=== PATIENT | male | born 1975 ===

== ENCOUNTER 2018-06-02 06:08 | Inpatient (IN) | payer OTHER ==
--- NOTE | 2018-06-02 06:50 | ED PDOC ---
HPI: Abdomen Time Seen by Provider: 06/02/18 06:34 Chief Complaint (Nursing): Abdominal Pain Chief Complaint (Provider): Abdominal pain History Per: Patient History/Exam Limitations: no limitations Onset/Duration Of Symptoms: Hrs Current Symptoms Are (Timing): Still Present Location Of Pain/Discomfort: RUQ Associated Symptoms: Nausea. denies: Vomiting Additional Complaint(s): 43yo male, with history of diabetes, hypertension, comes to ER with right upper quadrant pain which started at 4AM. Patient states this is the 3rd episode of such pain and he reports the episodes usually last about 5 minutes and resolves on its own. Patient states the pain is persistent today and is associated with nausea; he denies any vomiting. Patient states he has not had a bowel movement in 24 hours which is not normal for him. He otherwise denies any fever, chest pain or shortness of breath. PMD: Zakia Zuleta Past Medical History Reviewed: Historical Data, Nursing Documentation, Vital Signs Vital Signs: Last Vital Signs Temp 98 F 06/02/18 06:22 Pulse 89 06/02/18 06:22 Resp 16 06/02/18 06:22 BP 164/9 H 06/02/18 06:22 Pulse Ox 100 06/02/18 06:22 - Medical History PMH: Diabetes, HTN - Surgical History Surgical History: No Surg Hx - Family History Family History: States: No Known Family Hx - Home Medications Home Medications: Ambulatory Orders Medication Instructions Recorded No Known Home Med 06/02/18 - Allergies Allergies/Adverse Reactions: Allergies Allergy/AdvReac Type Severity Reaction Status Date / Time No Known Allergies Allergy Verified 06/02/18 06:25 Review of Systems ROS Statement: Except As Marked, All Systems Reviewed And Found Negative Constitutional: Negative for: Fever, Chills Cardiovascular: Negative for: Chest Pain Respiratory: Negative for: Shortness of Breath Gastrointestinal: Positive for: Nausea, Abdominal Pain, Other (no bowel movement in past 24 hours). Negative for: Vomiting Physical Exam - Reviewed Nursing Documentation Reviewed: Yes Vital Signs Reviewed: Yes - Physical Exam Appears: Positive for: Non-toxic, No Acute Distress Head Exam: Positive for: ATRAUMATIC, NORMAL INSPECTION, NORMOCEPHALIC Skin: Positive for: Normal Color, Warm Eye Exam: Positive for: Normal appearance, EOMI, PERRL Neck: Positive for: Normal, Supple Cardiovascular/Chest: Positive for: Regular Rate, Rhythm Respiratory: Positive for: Normal Breath Sounds Gastrointestinal/Abdominal: Positive for: Soft, Tenderness (right upper quadrant). Negative for: Mass, Guarding, Rebound Back: Positive for: Normal Inspection. Negative for: Vertebral Tenderness Extremity: Positive for: Normal ROM. Negative for: Pedal Edema Neurologic/Psych: Positive for: Alert, Oriented. Negative for: Motor/Sensory Deficits - Laboratory Results Result Diagrams: 06/02/18 07:07 06/02/18 07:07 - ECG O2 Sat by Pulse Oximetry: 100 (RA) Pulse Ox Interpretation: Normal Medical Decision Making Medical Decision Making: Assessment: 43yo male with right upper quadrant pain. Gallstones vs. cholecystitis vs. gas vs. constipation Plan: -- Labs -- US Abdomen -- XR Obstructive series -- Toradol 30mg IV -- Urinalysis 0700 Patient to be signed out to Dr. Winn pending labs, imaging studies and reass essment. Scribe Attestation: Documented by Naida Solorzano, acting as a scribe for Celestino Caruso MD. Provider Scribe Attestation: All medical record entries made by the Scribe were at my direction and personally dictated by me. I have reviewed the chart and agree that the record accurately reflects my personal performance of the history, physical exam, medical decision making, and the department course for this patient. I have also personally directed, reviewed, and agree with the discharge instructions and disposition. Disposition - Clinical Impression Clinical Impression: Cholecystitis - Patient ED Disposition Is Patient to be Admitted: Transfer of Care - Disposition Disposition: Transfer of Care Disposition Time: 07:00 Condition: FAIR
[2018-06-02 07:18] LABS: BASO % 0.3 % (0.0-2.0); EOS # 0.1 K/uL (0.0-0.7); EOS % 1.2 % (0.0-4.0); HEMOGLOBIN 14.9 g/dL (12.0-18.0); LYMPH # 1.4 K/uL (1.0-4.3); LYMPH % 15.6 % (20.0-40.0); MEAN CELL VOLUME 89.6 fl (80.0-94.0); MEAN CORPUSCULAR HGB CONC 34.6 g/dL (33.0-37.0); MEAN PLATELET VOLUME 8.7 fl (7.2-11.7); MONO # 0.6 K/uL (0.0-0.8); NEUT # 6.7 K/uL (1.8-7.0); NEUT % 75.9 % (50.0-75.0); NRBC % 0.2 % (0.0-0.0); RBC 4.81 Mil/uL (4.40-5.90); RED CELL DISTRIBUTION WIDTH 13.4 % (11.5-14.5); WHITE BLOOD COUNT 8.8 K/uL (4.8-10.8)
--- NOTE | 2018-06-02 07:25 | ED PDOC ---
- Laboratory Results Result Diagrams: 06/02/18 07:07 06/02/18 07:07 - ECG O2 Sat by Pulse Oximetry: 100 (RA) Pulse Ox Interpretation: Normal Medical Decision Making Medical Decision Making: Time: 699 Patient endorsed to provider by Dr. Caruso, pending imagining. Time: 852 TECHNIQUE: Sonographic evaluation of the right upper quadrant of the abdomen. FINDINGS: LIVER: Measures normal size and contour. The liver measures 16.4 cm in greatest dimension. Diffusely increased attenuation consistent with fatty infiltration. No mass. No biliary ductal dilatation. GALLBLADDER: Cholelithiasis. No mural thickening. Sludge. Adenomyomatosis is noted. The wall is thickened up to 4 mm.. There is no pericholecystic fluid. There is a s onographic Godinez sign demonstrated. This raises some suspicion of cholecystitis.. COMMON BILE DUCT: Measures 3 mm. No stones. No dilatation. PANCREAS: Unremarkable as visualized. No mass. No ductal dilatation. RIGHT KIDNEY: Measures 11.8 cm in length. Normal echogenicity. No calculus, mass, or h ydronephrosis. AORTA: No aneurysmal dilatation. IVC: Unremarkable. OTHER FINDINGS: None . IMPRESSION: Cholelithiasis. Thickened wall. Positive sonographic Godinez sign. Findings concerning for acute cholecystitis. Incidental adenomyomatosis. Fatty infiltration of the liver. Limited visualization of pancreas. Time: 933 PROCEDURE: Radiographs of the chest and abdomen (obstructive series) HISTORY: no BM in 24 hours COMPARISON: No prior. TECHNIQUE: AP radiograph of the chest, with upright and supine radiographs of the abdomen. FINDINGS: CHEST: Lungs: Clear. Cardiovascular: Normal size heart. No pulmonary vascular congestion. No aortic atherosclerotic calcification present Pleura: No pleural fluid. No pneumothorax. Other findings: None. ABDOMEN AND PELVIS: Bowel: Mild retained feces. No evidence of bowel obstruction. No hepatic or splenic enlargement. No masses or abnormal calcifications. Free air: Evaluation for free intra-abdominal air is limited on the basis of this examination. Bones: Unremarkable. Other findings: None. IMPRESSION: Unremarkable radiographs of chest and abdomen. No evidence of mechanical bowel obstruction. Scribe Attestation: Documented by Nestor Burgos, acting as a scribe for Kayode Winn MD. Provider Scribe Attestation: All medical record entries made by the Scribe were at my direction and personally dictated by me. I have reviewed the chart and agree that the record accurately reflects my personal performance of the history, physical exam, medical decision making, and the department course for this patient. I have also personally directed, reviewed, and agree with the discharge instructions and disposition. Disposition - Clinical Impression Clinical Impression: Cholecystitis - POA Present On Arrival: None - Disposition Disposition: Admitted as In-Patient Disposition Time: 11:32 Condition: FAIR Forms: [employer] (Romanian)
[2018-06-02 07:29] LABS: ALB/GLOB RATIO 1.2 (1.0-2.1); ALBUMIN 4.7 g/dL (3.5-5.0); ALT/SGPT 103 U/L (21-72); AST/SGOT 157 U/L (17-59); BLOOD UREA NITROGEN 18 mg/dl (9-20); CALCIUM 9.4 mg/dL (8.4-10.2); GFR NON-AFRICAN AMERICAN > 60; LIPASE 109 U/L (23-300)
[2018-06-02 08:22] LABS: URINE BILIRUBIN NEGATIVE (NEGATIVE); URINE BLOOD NEGATIVE (NEGATIVE); URINE CLARITY SLIGHTY-CLOUDY (Clear); URINE COLOR YELLOW (YELLOW); URINE GLUCOSE (UA) >=500 mg/dL (Normal); URINE LEUKOCYTE ESTERASE NEG Leu/uL (Negative); URINE PROTEIN NEGATIVE (NEGATIVE)
--- NOTE | 2018-06-02 08:57 | US ---
Date of service: 06/02/2018 HISTORY: RUQ Pain COMPARISON: None. TECHNIQUE: Sonographic evaluation of the right upper quadrant of the abdomen. FINDINGS: LIVER: Measures normal size and contour. The liver measures 16.4 cm in greatest dimension. Diffusely increased attenuation consistent with fatty infiltration. No mass. No biliary ductal dilatation. GALLBLADDER: Cholelithiasis. No mural thickening. Sludge. Adenomyomatosis is noted. The wall is thickened up to 4 mm.. There is no pericholecystic fluid. There is a sonographic Godinez sign demonstrated. This raises some suspicion of cholecystitis.. COMMON BILE DUCT: Measures 3 mm. No stones. No dilatation. PANCREAS: Unremarkable as visualized. No mass. No ductal dilatation. RIGHT KIDNEY: Measures 11.8 cm in length. Normal echogenicity. No calculus, mass, or hydronephrosis. AORTA: No aneurysmal dilatation. IVC: Unremarkable. OTHER FINDINGS: None . IMPRESSION: Cholelithiasis. Thickened wall. Positive sonographic Godinez sign. Findings concerning for acute cholecystitis. Incidental adenomyomatosis. Fatty infiltration of the liver. Limited visualization of pancreas.
--- NOTE | 2018-06-02 09:39 | RAD ---
Date of service: 06/02/2018 PROCEDURE: Radiographs of the chest and abdomen (obstructive series) HISTORY: no BM in 24 hours COMPARISON: No prior. TECHNIQUE: AP radiograph of the chest, with upright and supine radiographs of the abdomen. FINDINGS: CHEST: Lungs: Clear. Cardiovascular: Normal size heart. No pulmonary vascular congestion. No aortic atherosclerotic calcification present Pleura: No pleural fluid. No pneumothorax. Other findings: None. ABDOMEN AND PELVIS: Bowel: Mild retained feces. No evidence of bowel obstruction. No hepatic or splenic enlargement. No masses or abnormal calcifications. Free air: Evaluation for free intra-abdominal air is limited on the basis of this examination. Bones: Unremarkable. Other findings: None. IMPRESSION: Unremarkable radiographs of chest and abdomen. No evidence of mechanical bowel obstruction.
[2018-06-02] MEDS ORDERED: Sodium Chloride 0.9% 1,000 ML IV SCH (11:30)
--- NOTE | 2018-06-02 11:31 | CP.PCM.HP ---
History of Present Illness - History of Present Illness History of Present Illness: Surgery 43 M w PMH of DM , HTN and biliary colic came to ED w RUQ pain started this AM. Pain is located on RUQ also radiates to R shoulder. Denies fever, vomiting. PT has nausea. Reports that he had similar episodes multiple times in the past. THey went away in the past on its own. Pain and sxs has gotten worsen and more severe. US reads cholecystitis w 4mm thicken GB wall. w incidental finding of adenomyomatosis. CBD is 3mm. PMH DM, HTN PSH none SS social drinker, smoke 1 cig a day Present on Admission - Present on Admission Any Indicators Present on Admission: No Review of Systems - Review of Systems Review of Systems: See HPI Past Patient History - Past Social History Smoking Status: Never Smoked - CARDIAC Hx Hypertension: Yes - PSYCHIATRIC Hx Substance Use: No Meds Allergies/Adverse Reactions: Allergies Allergy/AdvReac Type Severity Reaction Status Date / Time No Known Allergies Allergy Verified 06/02/18 06:25 Physical Exam - Constitutional Appears: No Acute Distress - Head Exam Head Exam: ATRAUMATIC, NORMAL INSPECTION, NORMOCEPHALIC - Eye Exam Eye Exam: EOMI, Normal appearance, PERRL Pupil Exam: NORMAL ACCOMODATION, PERRL - ENT Exam ENT Exam: Mucous Membranes Moist - Neck Exam Neck exam: Positive for: Normal Inspection - Respiratory Exam Respiratory Exam: NORMAL BREATHING PATTERN - Cardiovascular Exam Cardiovascular Exam: REGULAR RHYTHM - GI/Abdominal Exam GI & Abdominal Exam: Soft, Tenderness. absent: Distended, Firm, Guarding Additional comments: RUQ TTP - Exam Exam: NORMAL INSPECTION - Extremities Exam Extremities exam: Positive for: normal inspection - Back Exam Back exam: NORMAL INSPECTION - Neurological Exam Neurological exam: Alert, CN II-XII Intact, Normal Gait, Oriented x3, Reflexes Normal - Psychiatric Exam Psychiatric exam: Normal Affect, Normal Mood - Skin Skin Exam: Dry, Intact, Normal Color, Warm Results - Vital Signs Recent Vital Signs: Last Vital Signs Temp 98.5 F 06/02/18 10:59 Pulse 89 06/02/18 10:59 Resp 18 06/02/18 10:59 BP 136/81 06/02/18 10:59 Pulse Ox 100 06/02/18 10:59 - Labs Result Diagrams: 06/02/18 07:07 06/02/18 07:07 Labs: Laboratory Results - last 24 hr 06/02/18 06/02/18 06/02/18 07:07 07:07 07:49 WBC 8.8 RBC 4.81 Hgb 14.9 Hct 43.0 MCV 89.6 MCH 31.0 MCHC 34.6 RDW 13.4 Plt Count 185 MPV 8.7 Neut % (Auto) 75.9 H Lymph % (Auto) 15.6 L [place] % (Auto) 7.0 Eos % (Auto) 1.2 Baso % (Auto) 0.3 Neut # (Auto) 6.7 Lymph # (Auto) 1.4 [place] # (Auto) 0.6 Eos # (Auto) 0.1 Baso # (Auto) 0.0 Sodium 140 Potassium 4.2 Chloride 102 Carbon Dioxide 26 Anion Gap 16 BUN 18 Creatinine 0.9 Est GFR ( Amer) > 60 Est GFR (Non-Af Amer) > 60 Random Glucose 235 H Calcium 9.4 Total Bilirubin 1.6 H AST 157 H ALT 103 H Alkaline Phosphatase 120 Total Protein 8.5 H Albumin 4.7 Globulin 3.8 Albumin/Globulin Ratio 1.2 Lipase 109 Urine Color Yellow Urine Clarity Slighty-cloudy Urine pH 6.0 Ur Specific [place] 1.016 Urine Protein Negative Urine Glucose (UA) >=500 Urine Ketones Negative Urine Blood Negative Urine Nitrate Negative Urine Bilirubin Negative Urine Urobilinogen 4.0 Ur Leukocyte Esterase Neg Assessment & Plan - Assessment and Plan (Free Text) Assessment: CHolecystitis -OR today -NPO -IVF -ABX KAYCE Helms
[2018-06-02] MEDS ORDERED: Insulin Lispro (humaLOG) 100 Units/ml Inj SC STA (12:01)
[2018-06-02] MEDS ORDERED: Propofol 10 mg/ml Inj (20 ML) ONE (12:10)
[2018-06-02] MEDS ORDERED: Midazolam 2 MG/2 ML VIAL ONE (12:10)
[2018-06-02] MEDS ORDERED: Succinylcholine 200 mg/10 ml Inj IV ONE (12:12)
[2018-06-02] MEDS ORDERED: Lactated Ringer's 1,000 ML IV ONE (12:25)
[2018-06-02] MEDS: Piperacillin/Tazobact 3.375 GM in Sodium Chloride 0.9% 100 ML IVPB SCH ×3 (12:30→21:38)
[2018-06-02] MEDS ORDERED: Rocuronium 10 mg/ml (5 ml) ONE (12:36)
[2018-06-02 12:42] LABS: INR 0.9; PARTIAL THROMBOPLASTIN TIME 32.8 Seconds (25.6-37.1); PROTHROMBIN TIME 10.7 Seconds (9.8-13.1)
[2018-06-02] MEDS ORDERED: Neostigmine 1:1000 (1 mg/ml) Inj ONE (13:15)
[2018-06-02] MEDS: Lactated Ringer's 1,000 ML IV PRN ×2 (13:50→21:54)
--- NOTE | 2018-06-02 13:54 | PCM.OP ---
Operative Report - Operative Report Date of Surgery/Procedure: 06/02/18 Time of Surgery/Procedure: 13:54
[2018-06-02] MEDS: HYDROmorphone 0.5 mg/0.5 ml ISec IVP PRN ×2 (14:00→15:00)
--- NOTE | 2018-06-02 14:02 | PCM.SURG1 ---
Surgeon's Initial Post Op Note - Surgeon's Notes Surgeon: Dr. Helms Continuing Education Instructor: Dr. Calvert PGY3, Dr. Ng PGY2 Type of Anesthesia: General Endo Anesthesia Administered By: Dr. Pires Pre-Operative Diagnosis: Cholecystitis Operative Findings: See operative report Post-Operative Diagnosis: Same Operation Performed: Laparoscopic Cholecystectomy Specimen/Specimens Removed: Gallbladder Estimated Blood Loss: EBL {In ML}: 20 Blood Products Given: N/A Drains Used: No Drains Post-Op Condition: Good Date of Surgery/Procedure: 06/02/18 Time of Surgery/Procedure: 14:01
--- NOTE | 2018-06-02 14:04 | PCM.OP ---
Operative Report - Operative Report Date of Surgery/Procedure: 06/02/18 Time of Surgery/Procedure: 13:55 Surgeon: Dr. Helms Rn Case Management: Kathy Calvert PGY 3, Fahad PGY2 Anesthesia/Sedation: general ammy iHdalgo Pre-Operative Diagnosis: CHolecystitis Post-Operative Diagnosis: Cholecystitis Indication for Surgery: Cholecystitis Operative Findings: gallstones Procedure/Operation Description: After informed consent was obtained, the patient was brought to the operating room and placed supine on the operating room table. General endotracheal anesthesia was induced. The patient was then prepped and draped in the usual sterile fashion. An #11 blade scalpel was used to make 11 mm infraumbilical skin incision in the midline. Veress needle was introduced. A pneumoperitoneum was established. After an adequate pneumoperitoneum had been established, The 11-mm port was then placed into the abdomen. Camera was inserted and inspected the abdomen. Three additional ports were placed all under direct vision. An 11-mm port was placed in the epigastric area. Two 5-mm ports were placed in the right upper quadrant. The patient was placed in reverse Trendelenburg position and slightly rotated to the left. The fundus of the gallbladder was retracted superiorly and laterally. The infundibulum was retracted inferiorly and laterally. [place] grasper was used to carefully begin dissection of the peritoneum down around the base of the gallbladder. The triangle of Calot was carefully opened up. The cystic duct was identified heading up into the base of the gallbladder. The cystic artery was also identified within the triangle of Calot. After the triangle of Calot had been carefully dissected. Two clips were then placed distally on the cystic duct. a clip was then placed high up on the cystic duct near its junction with the gallbladder. The cystic duct was then divided using scissors. The cystic artery was clipped twice proximally and once distally. There was posterior branch noted. extra clips were applied proximally and distally. Ligated. The gallbladder was then removed up away from the liver bed using electrocautery. The gallbladder was placed in endobag and removed through the epigastric port site. Hemostasis was achieved with electrocautery and endoclip device. The liver bed was then irrigated and suctioned. All dissection areas were inspected. They were hemostatic. There was not any bile leakage. All clips were in place. The right gutter up over the edge of the liver was likewise irrigated and suctioned until dry. All ports were then removed under direct vision. The abdominal cavity was allowed to deflate. The fascia at the umbilical opening was closed with a stitch of 0 Vicryl. All skin incisions were then closed with subcuticular sutures of 4-0 Monocryl. The patient tolerated the procedure well. Dr. Helms was present during the entire case. Estimated Blood Loss: 20 Sponge/Instrument Count: Correct Drains: None Complications: None Specimen: Gallbladder Discharge & Condition: Sent to PACU
[2018-06-02] MEDS ORDERED: Piperacillin/Tazobact 3.375 GM in Sodium Chloride 0.9% 100 ML IVPB SCH (16:00)
--- NOTE | 2018-06-02 18:32 | CARD ---
APPROVED REPORT Date of service: 06/02/2018 EKG Measurement Heart [id number] <Conclusion> Normal sinus rhythm Left axis deviation Minimal voltage criteria for LVH, may be normal variant Abnormal ECG
[2018-06-02] MEDS: Insulin Lispro (humaLOG) 100 Units/ml Inj SC SCH ×2 (21:45→21:57)
[2018-06-02] MEDS: Metoprolol Succinate 50 mg XL Tab PO SCH (22:12)
--- NOTE | 2018-06-03 03:46 | OP ---
PROCEDURE DATE: 06/02/2018 TIME OF SURGERY: 04:00 p.m. SURGEON: Mary Lou Helms MD [employer] TECHNICIAN: Kathy Calvert DO; and Fahad Ng DO. ANESTHESIOLOGIST: Ralph Pires MD. ANESTHESIA: General endotracheal. PREOPERATIVE DIAGNOSIS: Cholecystitis. POSTOPERATIVE DIAGNOSIS: Cholecystitis. INDICATION FOR SURGERY: Cholecystitis. OPERATIVE FINDINGS: Gallstones. OPERATION DESCRIPTION: After informed consent was obtained, the patient was brought to the operating room and placed supine on the operating room table. General endotracheal anesthesia was induced. The patient was then prepped and draped in usual sterile fashion. The scalpel was used to make an 11 mm infraumbilical skin incision in the midline. Veress needle was introduced. A pneumoperitoneum was established. After adequate pneumoperitoneum has been established, an 11 mm port was then placed in the abdomen. Camera was inserted and I inspected the abdomen. Three additional ports were placed all under direct vision. An 11 mm port was placed in the epigastric area. Two 5 mm ports were placed on the right upper quadrant. The patient was placed in the reverse Trendelenburg position and slightly rotated to the left. The fundus of the gallbladder was retracted superiorly and laterally. The infundibulum was retracted inferiorly and laterally. [place] grasper was used carefully to begin dissecting the peritoneum down around the base of the gallbladder. The triangle of the Calot was carefully opened up. The cystic duct was identified, heading up to the base of the gallbladder. The cystic artery was also identified within the triangle of Calot. After the triangle of the Calot has been carefully dissected, two clips were then placed distally on the cystic duct. A clip was then placed high up on the cystic duct at the junction of the gallbladder. The cystic duct was then divided using scissors. The cystic artery was clipped twice proximally and once distally. There was also a posterior branch noted. Sterile clips were applied proximally and distally. They were both ligated. The gallbladder was then removed up away from the liver bed using electrocautery. The gallbladder was placed in the Endobag and removed through the epigastric port site. The gallbladder was placed on the endo bag and removed through the umbilical port site. The gallbladder was placed in the Endobag and removed through the umbilical port site. Hemostasis was achieved with electrocautery and Endoclip device. The liver bed was then irrigated and suctioned. All dissection areas were inspected. They were hemostatic. There was not any bile leakage. All clips were in place. The right gutter up over the edge of the liver was irrigated and suctioned until dry. All ports were then removed under direct vision. The abdominal cavity was allowed to deflate. The fascia at the umbilical opening was closed with stitch of 0 Vicryl. All skin incisions were then closed with subcuticular sutures of 4-0 Monocryl. The patient tolerated the procedure well. Dr. Helms was present during the entire case. Estimated blood loss was 20 mL. Sponge and instrument counts were correct. No drain was placed. No complications, and the patient was sent to PACU. Kathy Calvert DO Mary Lou Helms MD ZOILA
[2018-06-03] MEDS: Piperacillin/Tazobact 3.375 GM in Sodium Chloride 0.9% 100 ML IVPB SCH ×4 (03:48→21:06)
[2018-06-03] MEDS: Oxycodone/Acetaminophen 5/325 mg Tab PO PRN ×4 (05:16→20:16)
[2018-06-03 05:50] VITALS: RESP 18
[2018-06-03] MEDS: Insulin Lispro (humaLOG) 100 Units/ml Inj SC SCH ×4 (06:36→21:45)
[2018-06-03 07:06] LABS: BASO % 0.2 % (0.0-2.0); EOS # 0.1 K/uL (0.0-0.7); EOS % 1.8 % (0.0-4.0); HEMOGLOBIN 13.3 g/dL (12.0-18.0); LYMPH # 1.4 K/uL (1.0-4.3); LYMPH % 17.2 % (20.0-40.0); MEAN CORPUSCULAR HEMOGLOBIN 30.4 pg (27.0-31.0); MEAN CORPUSCULAR HGB CONC 34.5 g/dL (33.0-37.0); MEAN PLATELET VOLUME 8.8 fl (7.2-11.7); MONO # 0.7 K/uL (0.0-0.8); MONO % 8.9 % (0.0-10.0); NEUT # 5.7 K/uL (1.8-7.0); NEUT % 71.9 % (50.0-75.0); NRBC % 0.1 % (0.0-0.0); RBC 4.39 Mil/uL (4.40-5.90); RED CELL DISTRIBUTION WIDTH 13.3 % (11.5-14.5); WHITE BLOOD COUNT 7.9 K/uL (4.8-10.8)
[2018-06-03 07:22] LABS: ALB/GLOB RATIO 1.2 (1.0-2.1); ALBUMIN 3.8 g/dL (3.5-5.0); ALT/SGPT 580 U/L (21-72); AST/SGOT 495 U/L (17-59); BLOOD UREA NITROGEN 12 mg/dl (9-20); CALCIUM 8.3 mg/dL (8.4-10.2); GFR NON-AFRICAN AMERICAN > 60
[2018-06-03] MEDS ORDERED: Influenza Vaccine (5 YR UP)/PF 60 MCG/0.5 ML SYR IM ONE (09:00)
[2018-06-03] MEDS: Metoprolol Succinate 50 mg XL Tab PO SCH (09:23)
[2018-06-03] MEDS: Enoxaparin 40 mg Syringe SC SCH (10:00)
[2018-06-03] MEDS ORDERED: Pneumococcal 23-Valent Vaccine IM ONE (10:00)
[2018-06-04] MEDS: Oxycodone/Acetaminophen 5/325 mg Tab PO PRN (03:25)
[2018-06-04] MEDS: Piperacillin/Tazobact 3.375 GM in Sodium Chloride 0.9% 100 ML IVPB SCH ×2 (04:02→04:03)
[2018-06-04] MEDS: Insulin Lispro (humaLOG) 100 Units/ml Inj SC SCH (06:44)
[2018-06-04 07:12] LABS: ALB/GLOB RATIO 1.1 (1.0-2.1); ALBUMIN 3.9 g/dL (3.5-5.0); ALT/SGPT 543 U/L (21-72); AST/SGOT 253 U/L (17-59); BLOOD UREA NITROGEN 13 mg/dl (9-20); CALCIUM 8.8 mg/dL (8.4-10.2); GFR NON-AFRICAN AMERICAN > 60
--- NOTE | 2018-06-04 08:21 | CP.PCM.PN ---
Subjective - Date & Time of Evaluation Date of Evaluation: 06/04/18 Time of Evaluation: 07:15 - Subjective Subjective: General surgery: Dr. Helms patient seen and examined this am at bedside. FAMILIA per nursing. Patient states pain is improving and he would like to go home. he otherwise denies f/c, n/v LAWS, CP, SOB and extremity pain or weakness. Objective - Vital Signs/Intake and Output Vital Signs (last 24 hours): Temp Pulse Resp BP Pulse Ox 99 F 83 18 152/84 H 95 06/04/18 00:02 06/04/18 00:02 06/04/18 00:02 06/04/18 00:02 06/04/18 00:02 - Medications Medications: Current Medications Enoxaparin Sodium (Lovenox) 40 mg SC DAILY [facility]; Protocol Last Admin: 06/03/18 10:00 Dose: Not Given Hydromorphone HCl (Dilaudid) 0.5 mg IVP Q4 PRN PRN Reason: Pain, severe (8-10) Last Admin: 06/02/18 21:34 Dose: 0.5 mg Piperacillin Sod/Tazobactam (Sod 3.375 gm/ Sodium Chloride) 100 mls @ 100 mls/hr IVPB Q6 [facility]; Protocol Last Admin: 06/04/18 04:03 Dose: 100 mls/hr Lactated Ringer's (Lactated Ringer's) 1,000 mls @ 100 mls/hr IV .Q10H PRN PRN Reason: Hypotension Last Admin: 06/02/18 21:54 Dose: 100 mls/hr Insulin Human Lispro (Humalog) 0 units SC ACHS [facility]; Protocol Last Admin: 06/04/18 06:44 Dose: Not Given Lisinopril (Zestril) 20 mg PO DAILY [facility] Last Admin: 06/03/18 09:27 Dose: 20 mg Metformin HCl (Glucophage) 1,000 mg PO BRK [facility] Last Admin: 06/03/18 09:23 Dose: 1,000 mg Metoprolol Succinate (Toprol Xl) 50 mg PO DAILY [facility] Last Admin: 06/03/18 09:23 Dose: 50 mg Ondansetron HCl (Zofran Inj) 4 mg IVP Q6 PRN PRN Reason: Nausea/Vomiting Last Admin: 06/02/18 21:35 Dose: 4 mg Oxycodone/Acetaminophen (Percocet 5/325 Mg Tab) 1 tab PO Q4 PRN PRN Reason: Pain, moderate (4-7) Stop: 06/05/18 13:59 Last Admin: 06/04/18 03:25 Dose: 1 tab - Labs Labs: 06/03/18 05:30 06/04/18 05:30 PT 10.7 Seconds (9.8-13.1) 06/02/18 11:43 INR 0.9 06/02/18 11:43 APTT 32.8 Seconds (25.6-37.1) 06/02/18 11:43 - Constitutional Appears: Well, Non-toxic, No Acute Distress - Head Exam Head Exam: ATRAUMATIC, NORMOCEPHALIC - Eye Exam Eye Exam: EOMI - ENT Exam ENT Exam: Mucous Membranes Moist - Respiratory Exam Respiratory Exam: NORMAL BREATHING PATTERN - Cardiovascular Exam Cardiovascular Exam: REGULAR RHYTHM - GI/Abdominal Exam GI & Abdominal Exam: Soft, Tenderness (mild incisional tendernes, mild RUQ tenderness). absent: Distended, Guarding - Extremities Exam Extremities Exam: absent: Calf Tenderness, Pedal Edema - Neurological Exam Neurological Exam: Alert, Awake, Oriented x3 - Psychiatric Exam Psychiatric exam: Normal Affect, Normal Mood - Skin Skin Exam: Dry, Intact, Normal Color, Warm Assessment and Plan - Assessment and Plan (Free Text) Assessment: 43 yr old male s/p lap cholecystectomy POD 2 Plan: continue reg diet pt is cleared for D/C from surgical standpoint follow up with Dr. Helms in office home with work note and light duty excuse will d/w Dr. Scooter Vazquez, PGY 1
[2018-06-04] MEDS: Metoprolol Succinate 50 mg XL Tab PO SCH (08:22)
[2018-06-04] MEDS: Enoxaparin 40 mg Syringe SC SCH (08:22)
[2018-06-04 08:44] VITALS: BP 151/95; PULSE 92; TEMP 99.2; O2SAT 98
--- NOTE | 2018-06-04 08:56 | CP.PCM.DIS ---
Provider - Provider Date of Admission: 06/02/18 11:31 Attending physician: Mary Lou Helms MD Time Spent in preparation of Discharge (in minutes): 45 Hospital Course - Lab Results Lab Results: Most Recent Lab Values WBC 7.9 K/uL (4.8-10.8) 06/03/18 05:30 RBC 4.39 Mil/uL (4.40-5.90) L 06/03/18 05:30 Hgb 13.3 g/dL (12.0-18.0) 06/03/18 05:30 Hct 38.7 % (35.0-51.0) 06/03/18 05:30 MCV 88.0 fl (80.0-94.0) 06/03/18 05:30 MCH 30.4 pg (27.0-31.0) 06/03/18 05:30 MCHC 34.5 g/dL (33.0-37.0) 06/03/18 05:30 RDW 13.3 % (11.5-14.5) 06/03/18 05:30 Plt Count 174 K/uL (130-400) 06/03/18 05:30 MPV 8.8 fl (7.2-11.7) 06/03/18 05:30 Neut % (Auto) 71.9 % (50.0-75.0) 06/03/18 05:30 Lymph % (Auto) 17.2 % (20.0-40.0) L 06/03/18 05:30 [place] % (Auto) 8.9 % (0.0-10.0) 06/03/18 05:30 Eos % (Auto) 1.8 % (0.0-4.0) 06/03/18 05:30 Baso % (Auto) 0.2 % (0.0-2.0) 06/03/18 05:30 Neut # (Auto) 5.7 K/uL (1.8-7.0) 06/03/18 05:30 Lymph # (Auto) 1.4 K/uL (1.0-4.3) 06/03/18 05:30 [place] # (Auto) 0.7 K/uL (0.0-0.8) 06/03/18 05:30 Eos # (Auto) 0.1 K/uL (0.0-0.7) 06/03/18 05:30 Baso # (Auto) 0.0 K/uL (0.0-0.2) 06/03/18 05:30 PT 10.7 Seconds (9.8-13.1) 06/02/18 11:43 INR 0.9 06/02/18 11:43 APTT 32.8 Seconds (25.6-37.1) 06/02/18 11:43 Sodium 139 mmol/l (132-148) 06/04/18 05:30 Potassium 3.9 MMOL/L (3.6-5.0) 06/04/18 05:30 Chloride 104 mmol/L (98-107) 06/04/18 05:30 Carbon Dioxide 25 mmol/L (22-30) 06/04/18 05:30 Anion Gap 14 (10-20) 06/04/18 05:30 BUN 13 mg/dl (9-20) 06/04/18 05:30 Creatinine 0.9 mg/dl (0.8-1.5) 06/04/18 05:30 Est GFR ( Amer) > 60 06/04/18 05:30 Est GFR (Non-Af Amer) > 60 06/04/18 05:30 POC Glucose (mg/dL) 123 mg/dL (65-110) H 06/04/18 05:38 Random Glucose 139 mg/dL (75-110) H 06/04/18 05:30 Calcium 8.8 mg/dL (8.4-10.2) 06/04/18 05:30 Total Bilirubin 1.2 mg/dl (0.2-1.3) 06/04/18 05:30 AST 253 U/L (17-59) H D 06/04/18 05:30 ALT 543 U/L (21-72) H 06/04/18 05:30 Alkaline Phosphatase 189 U/L (38-126) H D 06/04/18 05:30 Total Protein 7.5 G/DL (6.3-8.2) 06/04/18 05:30 Albumin 3.9 g/dL (3.5-5.0) 06/04/18 05:30 Globulin 3.5 gm/dL (2.2-3.9) 06/04/18 05:30 Albumin/Globulin Ratio 1.1 (1.0-2.1) 06/04/18 05:30 Lipase 109 U/L (23-300) 06/02/18 07:07 Urine Color Yellow (YELLOW) 06/02/18 07:49 Urine Clarity Slighty-cloudy (Clear) 06/02/18 07:49 Urine pH 6.0 (5.0-8.0) 06/02/18 07:49 Ur Specific [place] 1.016 (1.003-1.030) 06/02/18 07:49 Urine Protein Negative mg/dL (NEGATIVE) 06/02/18 07:49 Urine Glucose (UA) >=500 mg/dL (Normal) 06/02/18 07:49 Urine Ketones Negative mg/dL (NEGATIVE) 06/02/18 07:49 Urine Blood Negative (NEGATIVE) 06/02/18 07:49 Urine Nitrate Negative (NEGATIVE) 06/02/18 07:49 Urine Bilirubin Negative (NEGATIVE) 06/02/18 07:49 Urine Urobilinogen 4.0 mg/dL (0.2-1.0) 06/02/18 07:49 Ur Leukocyte Esterase Neg [place]/uL (Negative) 06/02/18 07:49 - Hospital Course Hospital Course: 43yo M with PMHx of HTN and DM here for evaluation of abdominal pain. Abdominal US with evidence of cholelithiasis with concerns for cholecystitis. Patient was taken to the OR for Laparoscopic Cholecystectomy. Surgery was uncomplicated. POD 1 patient c/o increased pain and requested to remain in the hospital for one more day. POD 2, patient's pain better controlled. Patient was discharged home in stable condition. All discharge instructions discussed with patient and he agrees with plan. D/C with instructions to take ibuprofen 400mg q6h as needed. Follow up with Dr. Helms in 10-14 days. Discharge Exam - Head Exam Head Exam: ATRAUMATIC, NORMAL INSPECTION, NORMOCEPHALIC - Eye Exam Eye Exam: EOMI, Normal appearance - ENT Exam ENT Exam: Mucous Membranes Dry, Mucous Membranes Moist - Respiratory Exam Respiratory Exam: NORMAL BREATHING PATTERN, UNREMARKABLE. absent: Accessory Muscle Use - Cardiovascular Exam Cardiovascular Exam: RRR. absent: JVD - GI/Abdominal Exam GI & Abdominal Exam: Soft. absent: Distended, Firm, Guarding, Rebound, Rigid Additional comments: Mild wilver-incisional tenderness - Extremities Exam Extremities exam: normal inspection - Neurological Exam Neurological exam: Alert, CN II-XII Intact, Oriented x3 - Psychiatric Exam Psychiatric exam: Normal Affect, Normal Mood - Skin Skin Exam: Dry, Intact, Normal Color, Warm Discharge Plan - Follow Up Plan Condition: FAIR Disposition: HOME/ ROUTINE Instructions: Cholecystectomy, Laparoscopic Surgery Additional Instructions: - Follow up with Dr. Helms in 10-14 days. Call for appointment - Use Ibuprofen 400mg every 6 hours as needed for pain. - No heavy lifting (>10 lbs) for 4 weeks. - Okay to shower. No soaking for 4 weeks. Allow skin glue to peel off on its own, do not pick at it. - Regular diet. - Resume all home meds. Referrals: Mary Lou Helms MD [Staff Provider] -
== END 2018-06-04 10:22 | disposition home or self-care (01) | DRG 263 ==
LOC: H.ER 06:08 → H.ERHOLD 11:31 → H.MEDSURG1 15:37
PROVIDERS: ADMIT Specialist; ATTEND Specialist
PROC: 0FT44ZZ Resection of Gallbladder, Percutaneous Endoscopic Approach (ICD-10-PCS; principal; 2018-06-02 12:00)
DX: K80.10 Calculus of gallbladder with chronic cholecystitis without obstruction (principal); K76.0 Fatty (change of) liver, not elsewhere classified; I10 Essential (primary) hypertension; E11.9 Type 2 diabetes mellitus without complications